=== PATIENT | male | born 1980 ===

== ENCOUNTER 2016-07-14 17:14 | Emergency (ER) | payer OTHER ==
[2016-07-14 17:19] VITALS: BP 133/82
[2016-07-14] MEDS ORDERED: Rabies Immune Globulin(HUMAN)* 150 UNIT/ML 10 ML IM ONE (17:59)
[2016-07-14] MEDS ORDERED: Rabies VIRUS VACCINE, HDCV* 2.5 UNIT/ML 1 ML IM ONE (18:06)
[2016-07-14] MEDS ORDERED: Rabies Vaccine, PCEC INJ ONE (18:25)
[2016-07-14] MEDS ORDERED: Tetan/Diph/Pertus SYR(Tdap)* 0.5 ML SYR(BOOSTRIX) use SYR IM ONE (18:42)
--- NOTE | 2016-07-14 19:04 | UC ---
Sona Lira Alok, scribed for Chrissy Ortiz MD on 07/14/16 at 1738 . Bite Injury/Animal HPI - HPI Summary HPI Summary: 35M presents to the [facility] with possible exposure to bat. Pt reports waking up at 0500 two days ago 07/12/16 finding a bat in their bedroom. Pt denies any bites identified. PMHx includes rheumatoid arthritis. Last tetanus is unrecalled, was definitely more than 5 years ago. The bat is not available for testing. - History of Current Complaint Chief Complaint: UCGeneralIllness Stated Complaint: RABIES POST EXPOSURE Time Seen by Provider: 07/14/16 17:30 Hx Obtained From: Patient Severity Currently: Moderate Severity Initially: Moderate Pain Intensity: 0 Pain Scale Used: 0-10 Numeric Onset/Duration: Lasting Hours Type of Bite: Wild Animal Has Animal Been Immunized?: No Aggravating Factor(s): Nothing Alleviating Factor(s): Nothing Associated Signs And Symptoms: Positive: Negative Hx of Bite: Unprovoked Animal Available for Observation: No Animal Control Notified: Yes - Allergies/Home Medications Allergies/Adverse Reactions: Allergies Allergy/AdvReac Type Severity Reaction Status Date / Time No Known Allergies Allergy Verified 07/14/16 17:19 Home Medications: Home Medications Folic Acid TAB* [Folvite TAB*] 1 mg PO DAILY 07/14/16 [History Confirmed ] Methotrexate TAB* 6 mg PO WEEKLY 07/14/16 [History Confirmed 07/14/16] PMH/Surg Hx/FS Hx/Imm Hx Previously Healthy: No - RA Endocrine History Of: Denies: Diabetes Cardiovascular History Of: Denies: Cardiac Disorders, Hypertension Respiratory History Of: Denies: COPD - Surgical History Surgical History: None - Family History Known Family History: Positive: Other - Yes - [place] (Grandfather) - Social History Occupation: Employed Full-time Lives: With Family Alcohol Use: Rare Substance Use Type: None Smoking Status (MU): Never Smoked Tobacco Review of Systems Constitutional: Negative Skin: Negative Respiratory: Negative Cardiovascular: Negative Neurological: Negative Psychological: Negative All Other Systems Reviewed And Are Negative: Yes Physical Exam Triage Information Reviewed: Yes Appearance: Well-Appearing, No Pain Distress, Well-Nourished Vital Signs: Initial Vital Signs Temp 98.9 F 07/14/16 17:16 Pulse 71 07/14/16 17:16 Resp 16 07/14/16 17:16 BP 133/82 07/14/16 17:16 Pulse Ox 100 07/14/16 17:16 Vital Signs Reviewed: Yes Eyes: Positive: Conjunctiva Clear ENT: Positive: Normal ENT inspection Neck: Positive: Supple Respiratory: Positive: Lungs clear, Normal breath sounds, No respiratory distress Cardiovascular: Positive: RRR, No Murmur, Pulses Normal, Brisk Capillary Refill Abdomen Description: Positive: Nontender, No Organomegaly, Soft Bowel Sounds: Positive: Present Musculoskeletal: Positive: Strength Intact, ROM Intact Neurological: Positive: Alert, Muscle Tone Normal Psychological Exam: Normal Skin Exam: Normal Bite Injury Course/Dx - Course Course Of Treatment: Pt medications reviewed at visit. Pt presents with possible bat exposure upon waking up in the bedroom. The bat is not available for testing. Will administer rabies immune globulin and viral vaccine as preventative measure as is protocol for possible rabies exposure event. - Differential Dx/Diagnosis Differential Diagnosis/HQI/PQRI: Rabies Exposure Provider Diagnoses: rabies post exposure prophylaxis. tetanus update with Tdap. elevated BP without dx of HTN Discharge - Discharge Plan Condition: Stable Disposition: HOME Patient Education Materials: Rabies Immune Globulin (By injection), Rabies Vaccine (ED) Referrals: Bre Lazo MD [Primary Care Provider] - Additional Instructions: RETURN TO URGENT CARE FOR ANY NEW OR WORSENING SYMPTOMS The documentation as recorded by the Sona patel Alok accurately reflects the service I personally performed and the decisions made by , Chrissy Ortiz MD.
== END 2016-07-14 20:15 | disposition home or self-care (01) ==
LOC: UCEAST 17:14
DX: Z20.3 Contact with and (suspected) exposure to rabies (principal); M06.9 Rheumatoid arthritis, unspecified
CPT/HCPCS: 90375; 90471; 90472; 90675; 90715; 96372; 99211; G0463